=== PATIENT | female | born 1950 | race Two or more races ===

== ENCOUNTER 2021-03-02 12:00 | Inpatient (IN) | payer OTHER ==
[~2021-03-02] VITALS: Ht 152.4 cm; Wt 74.4 kg
[2021-03-02] MEDS ORDERED: VASOTEC5 MG PO (14:16)
[2021-03-02] MEDS ORDERED: METFORMIN HCL500 M3 PO (14:16)
[2021-03-02] MEDS ORDERED: ZOCOR20 MG PO (14:17)
[2021-03-02] MEDS ORDERED: DILTIAZEM ER240 M3 PO (14:17)
[2021-03-02] MEDS ORDERED: LEXAPRO20 MG PO (14:17)
[2021-03-02] MEDS ORDERED: MAXIMUM D3325 MCG PO (14:18)
[2021-03-02] MEDS ORDERED: PROTONIX40 MG PO (14:18)
[2021-03-02] MEDS ORDERED: ASA81 MG PO (14:19)
[2021-03-02] MEDS ORDERED: GLIMEPIRIDE4 M1 PO (14:19)
[2021-03-12] MEDS ORDERED: PRILOSEC OTC20 MG PO (12:23)
[2021-03-12] MEDS ORDERED: PERCOCET 5-3251 EACH PO (12:23)
== END 2021-03-12 13:49 | disposition home or self-care (01) | DRG 331 ==
LOC: O/R 03-08 08:30 → SURH 03-08 08:30
PROVIDERS: ADMIT Surgery; ATTEND Surgery
PROC: 0DTN0ZZ Resection of Sigmoid Colon, Open Approach (ICD-10-PCS; 2021-03-08)
PROC: 0DJD8ZZ Inspection of Lower Intestinal Tract, Via Natural or Artificial Opening Endoscopic (ICD-10-PCS; 2021-03-08)
PROC: 3E0F7SF Introduction of Other Gas into Respiratory Tract, Via Natural or Artificial Opening (ICD-10-PCS; 2021-03-08)
PROC: 4A033R1 Measurement of Arterial Saturation, Peripheral, Percutaneous Approach (ICD-10-PCS; 2021-03-08)
PROC: 4A12X4Z Monitoring of Cardiac Electrical Activity, External Approach (ICD-10-PCS; 2021-03-08)
PROC: 0DTP0ZZ Resection of Rectum, Open Approach (ICD-10-PCS; principal; 2021-03-08 19:00)
DX: K57.32 Diverticulitis of large intestine without perforation or abscess without bleeding (principal); R19.7 Diarrhea, unspecified; K74.60 Unspecified cirrhosis of liver

== ENCOUNTER 2021-08-16 08:48 | Day surgery (SDC) | payer OTHER ==
[~2021-08-16 08:48] MED LIST: ASA81 MG PO; DILTIAZEM ER240 M3 PO; GLIMEPIRIDE4 M1 PO; LEXAPRO20 MG PO; MAXIMUM D3325 MCG PO; METFORMIN HCL500 M3 PO; PERCOCET 5-3251 EACH PO; PRILOSEC OTC20 MG PO; PROTONIX40 MG PO; VASOTEC5 MG PO; ZOCOR20 MG PO
== END 2021-08-16 14:05 | disposition home or self-care (01) ==
LOC: AMB-ENDOS 08:48
PROVIDERS: ATTEND Surgery
DX: R19.7 Diarrhea, unspecified (principal); R10.9 Unspecified abdominal pain